=== PATIENT | male | born 1950 | race African-American/Black ===

== ENCOUNTER 2022-08-16 03:11 | Inpatient (IN) | payer MEDICARE, OTHER ==
[2022-08-16 03:28] VITALS: BMI 23.7
[2022-08-16 04:34] LABS: BASO % 0.2 % (0-2.0); EOS % 3.2 % (0-4.5); HEMATOCRIT 42.9 % (35.4-49); HEMOGLOBIN 14.5 GM/dL (11.7-16.9); LYMPH % 28.8 % (8-40); MCH 30.7 pg (25.7-33.7); MCHC 33.9 g/dl (32.0-35.9); MEAN CELL VOLUME 90.5 fl (80-96); MEAN PLT VOLUME 10.5 fl (7.5-11.1); MONO % 8.2 % (3.8-10.2); NEUT % 59.6 % (42.8-82.8); PLATELET COUNT 156 10^3/uL (134-434); RBC 4.74 M/mm3 (4.00-5.60); RDW 13.7 % (11.9-15.9); WHITE BLOOD COUNT 6.7 K/mm3 (4.0-10.0)
[2022-08-16 04:46] LABS: INR 1.04 (0.83-1.09); PROTHROMBIN TIME (PATIENT) 12.1 SEC (9.7-13.0)
[2022-08-16 04:49] LABS: ACTIVATED PTT 33.6 SECONDS (25.2-36.5)
[2022-08-16 05:02] LABS: CHLORIDE 104 mmol/L (98-107); POTASSIUM 3.9 mmol/L (3.5-5.1); SODIUM 140 mmol/L (136-145)
[2022-08-16 05:04] LABS: ANION GAP 8 MMOL/L (8-16); CALCIUM 9.3 mg/dL (8.5-10.1); CO2 28 mmol/L (21-32)
[2022-08-16 05:05] LABS: ALBUMIN 4.2 g/dl (3.4-5.0)
[2022-08-16 05:06] LABS: BLOOD UREA NITROGEN 19.4 mg/dL (7-18); GLUCOSE,RANDOM 154 mg/dL (74-106)
[2022-08-16 05:08] LABS: CREATININE 1.7 mg/dL (0.55-1.3); SGOT/AST 16 U/L (15-37); SGPT/ALT 19 U/L (13-61)
[2022-08-16 05:09] LABS: CHOLESTEROL 264 mg/dL (50-200); TOT PROT 7.8 g/dl (6.4-8.2)
[2022-08-16 05:11] LABS: BILIRUBIN,TOTAL 0.5 mg/dL (0.2-1); HDL CHOLESTEROL 46 mg/dL (40-60); LDL CHOLESTEROL (ONLY SJRH) 172 mg/dL (5-100)
[2022-08-16 05:12] LABS: ALK PHOS 117 U/L (45-117)
[2022-08-16 05:58] LABS: URINE APPEARANCE CLEAR; URINE BILIRUBIN NEGATIVE (NEGATIVE); URINE COLOR YELLOW; URINE GLUCOSE (UA) NEGATIVE (NEGATIVE); URINE KETONE NEGATIVE (NEGATIVE); URINE LEUK ESTERASE NEGATIVE (NEGATIVE); URINE NITRITE NEGATIVE (NEGATIVE); URINE PROTEIN NEGATIVE (NEGATIVE)
[2022-08-16 06:25] LABS: METHADONE, UR NEGATIVE (NEGATIVE); OPIATES, URI NEGATIVE (NEGATIVE); PHENCYCLIDINE,URINE NEGATIVE (NEGATIVE); URINE BARBITURATES NEGATIVE (NEGATIVE); URINE BENZODIAZEPINES NEGATIVE (NEGATIVE)
[2022-08-16 06:51] LABS: COCAINE, UR POSITIVE (NEGATIVE); URINE AMPHETAMINES NEGATIVE (NEGATIVE)
[2022-08-16] MEDS ORDERED: SODIUM CHLORIDE 1,000 ML IV SCH (08:45)
[2022-08-16] MEDS ORDERED: amLODIPine BESYLATE 5 MG TABLET (FP) ONE (09:46)
[2022-08-16] MEDS ORDERED: ASPIRIN COATED 81 MG TABLET.EC ONE (09:46)
[2022-08-16] MEDS ORDERED: ATORVASTATIN CA 40 MG TABLET (FP) ONE (09:47)
[2022-08-16] MEDS ORDERED: HEPARIN NA (PORCINE) 5,000 UNITS/ML 1ML VIAL ONE (09:48)
[2022-08-16] MEDS: amLODIPine BESYLATE 5 MG TABLET (FP) PO SCH (10:22)
[2022-08-16] MEDS: HEPARIN NA (PORCINE) 5,000 UNITS/ML 1ML VIAL SQ SCH ×2 (10:22→21:37)
[2022-08-16] MEDS: ASPIRIN COATED 81 MG TABLET.EC PO SCH (10:22)
[2022-08-16] MEDS: INSULIN SLIDING SCALE (NOVOLOG) 1 VIAL SQ SCH (17:30)
[2022-08-16] MEDS: ATORVASTATIN CA 40 MG TABLET (FP) PO SCH (21:37)
[2022-08-17] MEDS: INSULIN SLIDING SCALE (NOVOLOG) 1 VIAL SQ SCH ×3 (06:33→16:35)
[2022-08-17 07:40] LABS: BASO % 0.5 % (0-2.0); EOS % 3.1 % (0-4.5); HEMATOCRIT 42.3 % (35.4-49); HEMOGLOBIN 13.8 GM/dL (11.7-16.9); LYMPH % 38.7 % (8-40); MCHC 32.7 g/dl (32.0-35.9); MEAN CELL VOLUME 91.9 fl (80-96); MEAN PLT VOLUME 10.8 fl (7.5-11.1); NEUT % 49.7 % (42.8-82.8); PLATELET COUNT 150 10^3/uL (134-434); RBC 4.61 M/mm3 (4.00-5.60); RDW 13.7 % (11.9-15.9); WHITE BLOOD COUNT 5.9 K/mm3 (4.0-10.0)
[2022-08-17 08:00] LABS: POTASSIUM 3.8 mmol/L (3.5-5.1)
[2022-08-17 08:17] LABS: BLOOD UREA NITROGEN 18.5 mg/dL (7-18); CALCIUM 8.9 mg/dL (8.5-10.1)
[2022-08-17 08:21] LABS: CREATININE 1.4 mg/dL (0.55-1.3)
[2022-08-17] MEDS: HEPARIN NA (PORCINE) 5,000 UNITS/ML 1ML VIAL SQ SCH ×2 (10:21→21:02)
[2022-08-17] MEDS: amLODIPine BESYLATE 5 MG TABLET (FP) PO SCH (10:21)
[2022-08-17] MEDS: ASPIRIN COATED 81 MG TABLET.EC PO SCH (10:21)
[2022-08-17] MEDS: ATORVASTATIN CA 40 MG TABLET (FP) PO SCH (21:01)
[2022-08-18] MEDS: INSULIN SLIDING SCALE (NOVOLOG) 1 VIAL SQ SCH ×3 (06:06→16:37)
[2022-08-18 08:01] LABS: HEMOGLOBIN 13.4 GM/dL (11.7-16.9); MCH 30.4 pg (25.7-33.7); MCHC 33.7 g/dl (32.0-35.9); MEAN CELL VOLUME 90.4 fl (80-96); MEAN PLT VOLUME 10.6 fl (7.5-11.1); PLATELET COUNT 145 10^3/uL (134-434); RBC 4.42 M/mm3 (4.00-5.60); RDW 13.4 % (11.9-15.9); WHITE BLOOD COUNT 5.8 K/mm3 (4.0-10.0)
[2022-08-18 08:18] LABS: POTASSIUM 3.9 mmol/L (3.5-5.1)
[2022-08-18 08:21] LABS: BLOOD UREA NITROGEN 25.2 mg/dL (7-18); CALCIUM 8.9 mg/dL (8.5-10.1); MAGNESIUM 2.2 mg/dL (1.8-2.4)
[2022-08-18 08:24] LABS: CREATININE 1.8 mg/dL (0.55-1.3)
[2022-08-18] MEDS ORDERED: SODIUM CHLORIDE 1,000 ML IV SCH (09:30)
[2022-08-18] MEDS: ASPIRIN COATED 81 MG TABLET.EC PO SCH (09:37)
[2022-08-18] MEDS: amLODIPine BESYLATE 5 MG TABLET (FP) PO SCH (09:38)
[2022-08-18] MEDS ORDERED: ENOXAPARIN NA (PORCINE) 40 MG/0.4 ML DISP.SYRIN SQ SCH (10:00)
[2022-08-18] MEDS: HEPARIN NA (PORCINE) 5,000 UNITS/ML 1ML VIAL SQ SCH ×2 (14:04→21:39)
[2022-08-18 15:54] LABS: POTASSIUM 3.6 mmol/L (3.5-5.1)
[2022-08-18 15:56] LABS: BLOOD UREA NITROGEN 23.8 mg/dL (7-18)
[2022-08-18 15:59] LABS: CREATININE 1.6 mg/dL (0.55-1.3)
[2022-08-18] MEDS ORDERED: SODIUM CHLORIDE 500 ML IV STA (17:23)
[2022-08-18] MEDS: ATORVASTATIN CA 40 MG TABLET (FP) PO SCH (21:39)
[2022-08-19] MEDS: HEPARIN NA (PORCINE) 5,000 UNITS/ML 1ML VIAL SQ SCH ×2 (05:47→13:54)
[2022-08-19] MEDS: INSULIN SLIDING SCALE (NOVOLOG) 1 VIAL SQ SCH ×2 (06:03→11:31)
[2022-08-19 08:09] LABS: POTASSIUM 3.7 mmol/L (3.5-5.1)
[2022-08-19 08:11] LABS: BLOOD UREA NITROGEN 17.5 mg/dL (7-18); CALCIUM 9.1 mg/dL (8.5-10.1)
[2022-08-19 08:15] LABS: CREATININE 1.4 mg/dL (0.55-1.3)
[2022-08-19] MEDS: ASPIRIN COATED 81 MG TABLET.EC PO SCH (09:59)
[2022-08-19] MEDS: amLODIPine BESYLATE 5 MG TABLET (FP) PO SCH (09:59)
[2022-08-19 14:02] VITALS: BP 122/76; PULSE 74; RESP 18; TEMP 97.5
== END 2022-08-19 17:56 | disposition home or self-care (01) | DRG 896 ==
LOC: JER 03:11 → INTOOBSV 06:46 → JERBED 06:46 → J4S 12:06 → OBSVTOIN 20:10
PROVIDERS: ADMIT Internal Medicine; ATTEND Internal Medicine
DX: F14.90 Cocaine use, unspecified, uncomplicated (principal); G92.9 Unspecified toxic encephalopathy; R47.01 Aphasia; N17.9 Acute kidney failure, unspecified; R55 Syncope and collapse; I10 Essential (primary) hypertension; E78.5 Hyperlipidemia, unspecified; E11.9 Type 2 diabetes mellitus without complications; Z86.73 Personal history of transient ischemic attack (TIA), and cerebral infarction without residual deficits
CPT/HCPCS: 36415; 70450-TC; 70496-TC; 70498-TC; 70551-TC; 76775-TC; 80048; 80053; 80061; 80307; 81003; 82436; 82550; 82570; 82962; 83036; 83735; 84133; 84300; 84439; 84443; 84484; 84540; 85025; 85027; 85610; 85730; 93005; 93010; 97116-GP; 97162-GP; 99285-25; G0378; J1644

== ENCOUNTER 2022-10-09 21:47 | Inpatient (IN) | payer OTHER ==
[2022-10-09] MEDS ORDERED: SODIUM CHLORIDE 0.9% 500 ML INFUS.BAG IV ONE (23:19)
[2022-10-10 00:43] LABS: POTASSIUM 4.9 mmol/L (3.5-5.1)
[2022-10-10 00:47] LABS: ALBUMIN 4.9 g/dl (3.4-5.0); BLOOD UREA NITROGEN 12.2 mg/dL (7-18)
[2022-10-10 00:50] LABS: CREATININE 1.9 mg/dL (0.55-1.3)
[2022-10-10 00:52] LABS: BILIRUBIN,TOTAL 1.1 mg/dL (0.2-1); TOT PROT 9.6 g/dl (6.4-8.2)
[2022-10-10 01:14] LABS: BASO % 0.4 % (0-2.0); EOS % 2.2 % (0-4.5); HEMATOCRIT 47.2 % (35.4-49); LYMPH % 25.3 % (8-40); MCH 30.1 pg (25.7-33.7); MCHC 33.9 g/dl (32.0-35.9); MEAN CELL VOLUME 88.7 fl (80-96); MEAN PLT VOLUME 10.8 fl (7.5-11.1); MONO % 7.7 % (3.8-10.2); NEUT % 64.4 % (42.8-82.8); PLATELET COUNT 133 10^3/uL (134-434); RBC 5.32 M/mm3 (4.00-5.60); RDW 13.4 % (11.9-15.9); WHITE BLOOD COUNT 9.9 K/mm3 (4.0-10.0)
[2022-10-10 01:17] LABS: EPI CELLS 3 /uL (0-25.1); HYALINE CASTS 0 /uL (0-3.1); PH,URINE 7.5 (5.0-8.0); URINE APPEARANCE CLEAR; URINE BACTERIA 1 /uL (0-1359); URINE BILIRUBIN NEGATIVE (NEGATIVE); URINE COLOR YELLOW; URINE GLUCOSE (UA) NEGATIVE (NEGATIVE); URINE KETONE NEGATIVE (NEGATIVE); URINE LEUK ESTERASE NEGATIVE (NEGATIVE); URINE NITRITE NEGATIVE (NEGATIVE); URINE PROTEIN NEGATIVE (NEGATIVE); URINE RBC 8 /uL (0-23.9); URINE UROBILINOGEN 0.2 mg/dL (0.2-1.0); URINE WBC 2 /uL (0-25.8)
[2022-10-10 01:31] LABS: POTASSIUM 3.7 mmol/L (3.5-5.1)
[2022-10-10 01:33] LABS: BLOOD UREA NITROGEN 10.1 mg/dL (7-18); CALCIUM 9.5 mg/dL (8.5-10.1); MAGNESIUM 1.6 mg/dL (1.8-2.4)
[2022-10-10 01:37] LABS: CREATININE 1.6 mg/dL (0.55-1.3)
[2022-10-10] MEDS ORDERED: MAGNESIUM SULF 50% (8.12 MEQ/2 ML-1 GM VIAL) IVPB ONE (01:37)
[2022-10-10] MEDS ORDERED: MAGNESIUM SULFATE IN WATER 2 GM/50 ML IVPB IVPB ONE (01:49)
[2022-10-10 02:58] LABS: METHADONE, UR NEGATIVE (NEGATIVE)
[2022-10-10 02:59] LABS: OPIATES, URI NEGATIVE (NEGATIVE); PHENCYCLIDINE,URINE NEGATIVE (NEGATIVE); URINE BENZODIAZEPINES NEGATIVE (NEGATIVE)
[2022-10-10 03:24] LABS: COCAINE, UR POSITIVE (NEGATIVE); URINE AMPHETAMINES NEGATIVE (NEGATIVE); URINE BARBITURATES NEGATIVE (NEGATIVE)
[2022-10-10] MEDS ORDERED: levETIRAcetam 500 MG/5 ML INJECTION VIAL IVPB ONE ×2 (06:28→06:44)
[2022-10-10] MEDS ORDERED: levETIRAcetam 500 MG/5 ML INJECTION VIAL IVPB SCH ×2 (06:30→18:00)
[2022-10-10] MEDS ORDERED: HEPARIN NA (PORCINE) 5,000 UNITS/ML 1ML VIAL ONE (06:44)
[2022-10-10] MEDS: HEPARIN NA (PORCINE) 5,000 UNITS/ML 1ML VIAL SQ SCH ×3 (06:50→22:19)
[2022-10-10] MEDS ORDERED: VITAMIN B COMPLEX W/C COMBO TABLET (FP) PO SCH (10:00)
[2022-10-10] MEDS ORDERED: amLODIPine BESYLATE 5 MG TABLET (FP) PO SCH (10:00)
[2022-10-10] MEDS ORDERED: ASPIRIN COATED 81 MG TABLET.EC PO SCH (10:00)
[2022-10-10] MEDS ORDERED: SODIUM CHLORIDE 1,000 ML IV SCH ×2 (11:15→20:02)
[2022-10-10 11:54] LABS: HEMATOCRIT 46.3 % (35.4-49); HEMOGLOBIN 15.7 GM/dL (11.7-16.9); MEAN CELL VOLUME 88.3 fl (80-96); PLATELET COUNT 150 10^3/uL (134-434); RBC 5.24 M/mm3 (4.00-5.60); RDW 13.8 % (11.9-15.9)
[2022-10-10] MEDS: NYSTATIN 500,000 UNITS/5 ML SUSPENSION PO SCH ×2 (12:01→17:42)
[2022-10-10] MEDS: INSULIN SLIDING SCALE (NOVOLOG) 1 VIAL SQ SCH ×4 (12:04→22:30)
[2022-10-10 12:35] LABS: POTASSIUM 3.8 mmol/L (3.5-5.1)
[2022-10-10 12:44] LABS: PHOSPHOROUS 2.6 mg/dL (2.5-4.9)
[2022-10-10 12:46] LABS: TOT PROT 7.4 g/dl (6.4-8.2)
[2022-10-10] MEDS: CEFTRIAXONE 1 GM in DEXTROSE 5%-WATER - 50 ML IVPB SCH (15:05)
[2022-10-10] MEDS: ACETAMINOPHEN 325 MG TABLET (FP) PO PRN (18:32)
[2022-10-10] MEDS ORDERED: ATORVASTATIN CA 40 MG TABLET (FP) PO SCH (22:00)
[2022-10-10] MEDS: ATORVASTATIN CA 40 MG TABLET (FP) PO SCH (22:18)
[2022-10-10] MEDS ORDERED: SODIUM CHLORIDE 1,000 ML IV STA (22:44)
[2022-10-11] MEDS: NYSTATIN 500,000 UNITS/5 ML SUSPENSION PO SCH ×5 (00:40→23:02)
[2022-10-11] MEDS: levETIRAcetam 500 MG/5 ML INJECTION VIAL IVPB SCH ×2 (05:44→17:26)
[2022-10-11] MEDS: HEPARIN NA (PORCINE) 5,000 UNITS/ML 1ML VIAL SQ SCH ×3 (05:45→22:59)
[2022-10-11] MEDS: INSULIN SLIDING SCALE (NOVOLOG) 1 VIAL SQ SCH ×4 (06:01→23:04)
[2022-10-11] MEDS: CEFTRIAXONE 1 GM in DEXTROSE 5%-WATER - 50 ML IVPB SCH (09:58)
[2022-10-11] MEDS: ASPIRIN COATED 81 MG TABLET.EC PO SCH (09:59)
[2022-10-11] MEDS: VITAMIN B COMPLEX W/C COMBO TABLET (FP) PO SCH (09:59)
[2022-10-11] MEDS: amLODIPine BESYLATE 5 MG TABLET (FP) PO SCH (10:01)
[2022-10-11 19:59] LABS: BASO % 0.5 % (0-2.0); EOS % 1.4 % (0-4.5); HEMATOCRIT 39.9 % (35.4-49); HEMOGLOBIN 13.5 GM/dL (11.7-16.9); LYMPH % 27.2 % (8-40); MCH 30.1 pg (25.7-33.7); MCHC 33.9 g/dl (32.0-35.9); MEAN CELL VOLUME 88.9 fl (80-96); MEAN PLT VOLUME 11.1 fl (7.5-11.1); MONO % 6.7 % (3.8-10.2); NEUT % 64.2 % (42.8-82.8); PLATELET COUNT 116 10^3/uL (134-434); RBC 4.48 M/mm3 (4.00-5.60); RDW 13.6 % (11.9-15.9); WHITE BLOOD COUNT 7.7 K/mm3 (4.0-10.0)
[2022-10-11 21:07] LABS: BLOOD UREA NITROGEN 15.9 mg/dL (7-18); CALCIUM 8.1 mg/dL (8.5-10.1)
[2022-10-11 21:10] LABS: CREATININE 1.9 mg/dL (0.55-1.3)
[2022-10-11 21:12] LABS: BILIRUBIN,TOTAL 0.9 mg/dL (0.2-1); TOT PROT 6.2 g/dl (6.4-8.2)
[2022-10-11 21:17] LABS: ALBUMIN 3.2 g/dl (3.4-5.0)
[2022-10-11] MEDS: ATORVASTATIN CA 40 MG TABLET (FP) PO SCH (23:00)
[2022-10-11] MEDS: QUEtiapine FUMARATE 25 MG TABLET PO PRN (23:01)
[2022-10-12] MEDS: levETIRAcetam 500 MG/5 ML INJECTION VIAL IVPB SCH ×2 (06:32→17:54)
[2022-10-12] MEDS: NYSTATIN 500,000 UNITS/5 ML SUSPENSION PO SCH ×3 (06:33→18:01)
[2022-10-12] MEDS: HEPARIN NA (PORCINE) 5,000 UNITS/ML 1ML VIAL SQ SCH ×3 (06:33→22:14)
[2022-10-12] MEDS: INSULIN SLIDING SCALE (NOVOLOG) 1 VIAL SQ SCH ×4 (06:36→22:21)
[2022-10-12 08:18] LABS: BASO % 0.3 % (0-2.0); EOS % 2.7 % (0-4.5); HEMATOCRIT 36.2 % (35.4-49); HEMOGLOBIN 11.9 GM/dL (11.7-16.9); LYMPH % 30.3 % (8-40); MEAN PLT VOLUME 10.9 fl (7.5-11.1); MONO % 10.7 % (3.8-10.2); PLATELET COUNT 108 10^3/uL (134-434); RBC 3.98 M/mm3 (4.00-5.60); RDW 13.3 % (11.9-15.9); WHITE BLOOD COUNT 6.3 K/mm3 (4.0-10.0)
[2022-10-12 08:48] LABS: BLOOD UREA NITROGEN 14.5 mg/dL (7-18); CALCIUM 8.4 mg/dL (8.5-10.1)
[2022-10-12 08:49] LABS: ALBUMIN 3.1 g/dl (3.4-5.0)
[2022-10-12 08:52] LABS: CREATININE 1.7 mg/dL (0.55-1.3)
[2022-10-12 08:53] LABS: TOT PROT 5.9 g/dl (6.4-8.2)
[2022-10-12] MEDS: CEFTRIAXONE 1 GM in DEXTROSE 5%-WATER - 50 ML IVPB SCH (09:41)
[2022-10-12] MEDS: amLODIPine BESYLATE 5 MG TABLET (FP) PO SCH (09:41)
[2022-10-12] MEDS: ASPIRIN COATED 81 MG TABLET.EC PO SCH (09:41)
[2022-10-12] MEDS: VITAMIN B COMPLEX W/C COMBO TABLET (FP) PO SCH (09:42)
[2022-10-12] MEDS: ATORVASTATIN CA 40 MG TABLET (FP) PO SCH (22:15)
[2022-10-13] MEDS: NYSTATIN 500,000 UNITS/5 ML SUSPENSION PO SCH ×4 (05:32→18:16)
[2022-10-13] MEDS: HEPARIN NA (PORCINE) 5,000 UNITS/ML 1ML VIAL SQ SCH ×3 (05:32→21:57)
[2022-10-13] MEDS: levETIRAcetam 500 MG/5 ML INJECTION VIAL IVPB SCH ×2 (05:32→18:16)
[2022-10-13] MEDS: INSULIN SLIDING SCALE (NOVOLOG) 1 VIAL SQ SCH ×4 (06:08→22:04)
[2022-10-13] MEDS: CEFTRIAXONE 1 GM in DEXTROSE 5%-WATER - 50 ML IVPB SCH (09:58)
[2022-10-13] MEDS: amLODIPine BESYLATE 5 MG TABLET (FP) PO SCH (09:58)
[2022-10-13] MEDS: ASPIRIN COATED 81 MG TABLET.EC PO SCH (09:58)
[2022-10-13] MEDS: VITAMIN B COMPLEX W/C COMBO TABLET (FP) PO SCH (09:58)
[2022-10-13] MEDS: AMINO ACIDS 4.25%/D5W 1,000 ML IV SCH (17:06)
[2022-10-13] MEDS: ATORVASTATIN CA 40 MG TABLET (FP) PO SCH (21:57)
[2022-10-14] MEDS: NYSTATIN 500,000 UNITS/5 ML SUSPENSION PO SCH ×5 (00:49→23:49)
[2022-10-14] MEDS: HEPARIN NA (PORCINE) 5,000 UNITS/ML 1ML VIAL SQ SCH ×3 (05:20→22:24)
[2022-10-14] MEDS: levETIRAcetam 500 MG/5 ML INJECTION VIAL IVPB SCH ×2 (05:20→17:17)
[2022-10-14] MEDS: INSULIN SLIDING SCALE (NOVOLOG) 1 VIAL SQ SCH ×4 (06:01→22:24)
[2022-10-14 08:59] LABS: HEMATOCRIT 35.2 % (35.4-49); MCH 30.3 pg (25.7-33.7); MCHC 34.1 g/dl (32.0-35.9); MEAN PLT VOLUME 10.7 fl (7.5-11.1); PLATELET COUNT 130 10^3/uL (134-434); RBC 3.96 M/mm3 (4.00-5.60); RDW 13.5 % (11.9-15.9); WHITE BLOOD COUNT 5.6 K/mm3 (4.0-10.0)
[2022-10-14 09:14] LABS: POTASSIUM 3.9 mmol/L (3.5-5.1)
[2022-10-14 09:25] LABS: BLOOD UREA NITROGEN 13.6 mg/dL (7-18)
[2022-10-14 09:28] LABS: CREATININE 1.4 mg/dL (0.55-1.3)
[2022-10-14 09:30] LABS: CALCIUM 9.2 mg/dL (8.5-10.1)
[2022-10-14] MEDS: CEFTRIAXONE 1 GM in DEXTROSE 5%-WATER - 50 ML IVPB SCH (09:32)
[2022-10-14] MEDS: amLODIPine BESYLATE 5 MG TABLET (FP) PO SCH (09:33)
[2022-10-14] MEDS: VITAMIN B COMPLEX W/C COMBO TABLET (FP) PO SCH (09:33)
[2022-10-14] MEDS: ASPIRIN COATED 81 MG TABLET.EC PO SCH (09:33)
[2022-10-14 14:52] VITALS: BMI 21.1
[2022-10-14] MEDS: AMINO ACIDS 4.25%/D5W 1,000 ML IV SCH (17:00)
[2022-10-14] MEDS: ATORVASTATIN CA 40 MG TABLET (FP) PO SCH (22:24)
[2022-10-15] MEDS: HEPARIN NA (PORCINE) 5,000 UNITS/ML 1ML VIAL SQ SCH ×3 (06:14→21:05)
[2022-10-15] MEDS: NYSTATIN 500,000 UNITS/5 ML SUSPENSION PO SCH ×4 (06:14→23:15)
[2022-10-15] MEDS: levETIRAcetam 500 MG/5 ML INJECTION VIAL IVPB SCH ×2 (06:14→17:07)
[2022-10-15] MEDS: INSULIN SLIDING SCALE (NOVOLOG) 1 VIAL SQ SCH ×4 (06:20→21:20)
[2022-10-15] MEDS: ASPIRIN COATED 81 MG TABLET.EC PO SCH (09:08)
[2022-10-15] MEDS: amLODIPine BESYLATE 5 MG TABLET (FP) PO SCH (09:08)
[2022-10-15] MEDS: VITAMIN B COMPLEX W/C COMBO TABLET (FP) PO SCH (09:08)
[2022-10-15 14:03] LABS: BASO % 0.5 % (0-2.0); EOS % 5.7 % (0-4.5); HEMATOCRIT 38.8 % (35.4-49); HEMOGLOBIN 12.8 GM/dL (11.7-16.9); LYMPH % 31.3 % (8-40); MCH 29.8 pg (25.7-33.7); MEAN CELL VOLUME 90.1 fl (80-96); MEAN PLT VOLUME 11.4 fl (7.5-11.1); MONO % 6.7 % (3.8-10.2); NEUT % 55.8 % (42.8-82.8); PLATELET COUNT 149 10^3/uL (134-434); RBC 4.31 M/mm3 (4.00-5.60); RDW 13.2 % (11.9-15.9); WHITE BLOOD COUNT 5.7 K/mm3 (4.0-10.0)
[2022-10-15 14:28] LABS: POTASSIUM 3.7 mmol/L (3.5-5.1)
[2022-10-15 14:36] LABS: ALBUMIN 3.1 g/dl (3.4-5.0); BLOOD UREA NITROGEN 13.7 mg/dL (7-18); CREATININE 1.3 mg/dL (0.55-1.3)
[2022-10-15 14:37] LABS: TOT PROT 6.8 g/dl (6.4-8.2)
[2022-10-15 14:38] LABS: BILIRUBIN,TOTAL 0.5 mg/dL (0.2-1); CALCIUM 8.9 mg/dL (8.5-10.1)
[2022-10-15] MEDS: AMINO ACIDS 4.25%/D5W 1,000 ML IV SCH ×2 (16:43→21:04)
[2022-10-15] MEDS: POLYMYXIN B SULFATE/TMP 10 ML OPHTHALMIC SOLUTION OU SCH ×2 (17:53→23:14)
[2022-10-15] MEDS: THIAMINE HCL 200 MG/2 ML VIAL IVPB SCH (21:05)
[2022-10-15] MEDS: ATORVASTATIN CA 40 MG TABLET (FP) PO SCH (21:05)
[2022-10-15] MEDS: QUEtiapine FUMARATE 25 MG TABLET PO PRN (21:05)
[2022-10-16] MEDS: levETIRAcetam 500 MG/5 ML INJECTION VIAL IVPB SCH ×2 (05:23→17:35)
[2022-10-16] MEDS: NYSTATIN 500,000 UNITS/5 ML SUSPENSION PO SCH ×3 (05:23→17:39)
[2022-10-16] MEDS: HEPARIN NA (PORCINE) 5,000 UNITS/ML 1ML VIAL SQ SCH ×3 (05:23→22:04)
[2022-10-16] MEDS: POLYMYXIN B SULFATE/TMP 10 ML OPHTHALMIC SOLUTION OU SCH ×4 (05:32→22:15)
[2022-10-16] MEDS: INSULIN SLIDING SCALE (NOVOLOG) 1 VIAL SQ SCH ×4 (06:06→23:12)
[2022-10-16 07:19] LABS: HEMATOCRIT 36.5 % (35.4-49); HEMOGLOBIN 12.2 GM/dL (11.7-16.9); MCH 29.9 pg (25.7-33.7); MCHC 33.4 g/dl (32.0-35.9); MEAN CELL VOLUME 89.5 fl (80-96); PLATELET COUNT 138 10^3/uL (134-434); RBC 4.08 M/mm3 (4.00-5.60); RDW 13.3 % (11.9-15.9); WHITE BLOOD COUNT 5.8 K/mm3 (4.0-10.0)
[2022-10-16 07:41] LABS: POTASSIUM 3.4 mmol/L (3.5-5.1)
[2022-10-16 07:43] LABS: CALCIUM 8.4 mg/dL (8.5-10.1)
[2022-10-16 07:44] LABS: BLOOD UREA NITROGEN 16.7 mg/dL (7-18)
[2022-10-16 07:47] LABS: CREATININE 1.3 mg/dL (0.55-1.3)
[2022-10-16 07:49] LABS: BILIRUBIN,TOTAL 0.6 mg/dL (0.2-1); TOT PROT 6.2 g/dl (6.4-8.2)
[2022-10-16] MEDS: amLODIPine BESYLATE 5 MG TABLET (FP) PO SCH (09:01)
[2022-10-16] MEDS: ACETAMINOPHEN 325 MG TABLET (FP) PO PRN (09:01)
[2022-10-16] MEDS: ASPIRIN COATED 81 MG TABLET.EC PO SCH (09:01)
[2022-10-16] MEDS: THIAMINE HCL 200 MG/2 ML VIAL IVPB SCH ×2 (09:01→22:04)
[2022-10-16] MEDS: VITAMIN B COMPLEX W/C COMBO TABLET (FP) PO SCH (09:01)
[2022-10-16] MEDS: POTASSIUM CHLORIDE ORAL LIQUID 20 MEQ/15 ML PO SCH ×2 (09:52→22:04)
[2022-10-16] MEDS: AMINO ACIDS 4.25%/D5W 1,000 ML IV SCH (16:06)
[2022-10-16] MEDS ORDERED: ACETAMINOPHEN 325 MG TABLET (FP) PO PRN (20:17)
[2022-10-16] MEDS ORDERED: QUEtiapine FUMARATE 25 MG TABLET PO PRN (20:17)
[2022-10-16] MEDS: ATORVASTATIN CA 40 MG TABLET (FP) PO SCH (22:04)
[2022-10-17] MEDS: NYSTATIN 500,000 UNITS/5 ML SUSPENSION PO SCH ×5 (00:36→23:09)
[2022-10-17] MEDS: POLYMYXIN B SULFATE/TMP 10 ML OPHTHALMIC SOLUTION OU SCH ×4 (06:44→22:27)
[2022-10-17] MEDS: levETIRAcetam 500 MG/5 ML INJECTION VIAL IVPB SCH ×2 (06:45→18:50)
[2022-10-17] MEDS: HEPARIN NA (PORCINE) 5,000 UNITS/ML 1ML VIAL SQ SCH ×3 (06:45→22:27)
[2022-10-17] MEDS: INSULIN SLIDING SCALE (NOVOLOG) 1 VIAL SQ SCH ×4 (08:03→23:00)
[2022-10-17] MEDS: THIAMINE HCL 200 MG/2 ML VIAL IVPB SCH ×2 (10:11→22:27)
[2022-10-17] MEDS: amLODIPine BESYLATE 5 MG TABLET (FP) PO SCH (10:11)
[2022-10-17] MEDS: VITAMIN B COMPLEX W/C COMBO TABLET (FP) PO SCH (10:11)
[2022-10-17] MEDS: ASPIRIN COATED 81 MG TABLET.EC PO SCH (10:11)
[2022-10-17 10:26] LABS: HEMATOCRIT 39.1 % (35.4-49); HEMOGLOBIN 13.5 GM/dL (11.7-16.9); MCH 30.5 pg (25.7-33.7); MCHC 34.4 g/dl (32.0-35.9); MEAN CELL VOLUME 88.7 fl (80-96); MEAN PLT VOLUME 10.3 fl (7.5-11.1); PLATELET COUNT 166 10^3/uL (134-434); RBC 4.41 M/mm3 (4.00-5.60); RDW 13.3 % (11.9-15.9); WHITE BLOOD COUNT 6.7 K/mm3 (4.0-10.0)
[2022-10-17 10:33] LABS: POTASSIUM 4.3 mmol/L (3.5-5.1)
[2022-10-17 10:42] LABS: ALBUMIN 3.2 g/dl (3.4-5.0); BLOOD UREA NITROGEN 20.2 mg/dL (7-18); CALCIUM 9.1 mg/dL (8.5-10.1); MAGNESIUM 1.9 mg/dL (1.8-2.4); PHOSPHOROUS 2.4 mg/dL (2.5-4.9)
[2022-10-17 10:44] LABS: BILIRUBIN,TOTAL 0.5 mg/dL (0.2-1); TOT PROT 6.9 g/dl (6.4-8.2)
[2022-10-17 10:47] LABS: CREATININE 1.3 mg/dL (0.55-1.3)
[2022-10-17] MEDS ORDERED: AMINO ACIDS 4.25%/D5W 1,000 ML IV SCH (16:00)
[2022-10-17] MEDS: AMINO ACIDS/PROTEIN HYDROLYS 30 ML LIQUID.PKT PO SCH (18:39)
[2022-10-17] MEDS ORDERED: MIRTAZAPINE 15 MG TABLET (FP) PO SCH (22:00)
[2022-10-17] MEDS: ATORVASTATIN CA 40 MG TABLET (FP) PO SCH (22:26)
[2022-10-18] MEDS: HEPARIN NA (PORCINE) 5,000 UNITS/ML 1ML VIAL SQ SCH ×2 (05:33→13:44)
[2022-10-18] MEDS: POLYMYXIN B SULFATE/TMP 10 ML OPHTHALMIC SOLUTION OU SCH ×2 (05:33→12:37)
[2022-10-18] MEDS: NYSTATIN 500,000 UNITS/5 ML SUSPENSION PO SCH ×2 (05:34→12:37)
[2022-10-18] MEDS: levETIRAcetam 500 MG/5 ML INJECTION VIAL IVPB SCH (05:34)
[2022-10-18 06:01] VITALS: RESP 18
[2022-10-18] MEDS: INSULIN SLIDING SCALE (NOVOLOG) 1 VIAL SQ SCH ×2 (06:46→11:43)
[2022-10-18] MEDS: AMINO ACIDS/PROTEIN HYDROLYS 30 ML LIQUID.PKT PO SCH (08:28)
[2022-10-18] MEDS: THIAMINE HCL 200 MG/2 ML VIAL IVPB SCH (10:27)
[2022-10-18] MEDS: ASPIRIN COATED 81 MG TABLET.EC PO SCH (10:27)
[2022-10-18] MEDS: VITAMIN B COMPLEX W/C COMBO TABLET (FP) PO SCH (10:27)
[2022-10-18] MEDS: amLODIPine BESYLATE 5 MG TABLET (FP) PO SCH (10:27)
[2022-10-18 15:19] VITALS: BP 127/69; PULSE 71; TEMP 98.4
== END 2022-10-18 18:01 | DRG 70 ==
LOC: JER 21:47 → JERBED 10-10 03:38 → J5S 10-10 09:20 → J4S 10-10 18:58 → OBSVTOIN 10-13 14:12 → J4S 10-15 17:19 → J8W 10-16 20:06
PROVIDERS: ADMIT Internal Medicine; ATTEND Nurse Practitioner Acute Care
DX: G93.89 Other specified disorders of brain (principal); E43 Unspecified severe protein-calorie malnutrition; E87.1 Hypo-osmolality and hyponatremia; R47.01 Aphasia; B37.0 Candidal stomatitis; M62.82 Rhabdomyolysis; R62.7 Adult failure to thrive; G92.8 Other toxic encephalopathy; R45.1 Restlessness and agitation; I10 Essential (primary) hypertension; E78.5 Hyperlipidemia, unspecified; N18.2 Chronic kidney disease, stage 2 (mild); R56.9 Unspecified convulsions; F14.90 Cocaine use, unspecified, uncomplicated; Z68.20 Body mass index [BMI] 20.0-20.9, adult
CPT/HCPCS: 36415; 70450-TC; 71045-TC-FY; 71250-TC; 74176-TC; 80048; 80053; 80307; 81003; 82436; 82550; 82553; 82570; 82962; 83735; 83935; 84100; 84133; 84156; 84300; 84484; 84540; 85025; 85027; 87040; 87086; 87635; 93005; 93010; 95816; 97116-GP; 97162-GP; 99285-25; G0378; J1644

== ENCOUNTER 2022-10-19 23:17 | Emergency (ER) | payer OTHER ==
[2022-10-19 23:37] VITALS: BMI 25.0
[2022-10-20 01:51] LABS: URINE APPEARANCE CLEAR; URINE BILIRUBIN 1+ (NEGATIVE); URINE COLOR DK YELLOW; URINE GLUCOSE (UA) NEGATIVE (NEGATIVE); URINE KETONE NEGATIVE (NEGATIVE); URINE LEUK ESTERASE NEGATIVE (NEGATIVE); URINE NITRITE NEGATIVE (NEGATIVE); URINE PROTEIN TRACE (NEGATIVE)
[2022-10-20 02:24] LABS: BASO % 0.2 % (0-2.0); EOS % 6.3 % (0-4.5); HEMATOCRIT 39.2 % (35.4-49); HEMOGLOBIN 13.3 GM/dL (11.7-16.9); LYMPH % 34.6 % (8-40); MCH 30.2 pg (25.7-33.7); MCHC 33.9 g/dl (32.0-35.9); MEAN CELL VOLUME 89.1 fl (80-96); MEAN PLT VOLUME 9.4 fl (7.5-11.1); MONO % 9.9 % (3.8-10.2); PLATELET COUNT 233 10^3/uL (134-434); RDW 13.5 % (11.9-15.9); WHITE BLOOD COUNT 6.5 K/mm3 (4.0-10.0)
[2022-10-20 02:50] LABS: POTASSIUM 4.6 mmol/L (3.5-5.1)
[2022-10-20 02:51] LABS: CALCIUM 8.6 mg/dL (8.5-10.1)
[2022-10-20 02:52] LABS: ALBUMIN 3.2 g/dl (3.4-5.0)
[2022-10-20 02:55] LABS: CREATININE 1.7 mg/dL (0.55-1.3)
[2022-10-20 02:57] LABS: BILIRUBIN,TOTAL 0.5 mg/dL (0.2-1); TOT PROT 6.9 g/dl (6.4-8.2)
[2022-10-20] MEDS ORDERED: SODIUM CHLORIDE 0.9% 500 ML INFUS.BAG IV ONE (03:10)
[2022-10-20 05:49] VITALS: RESP 15; TEMP 97.8
[2022-10-20 06:17] VITALS: BP 129/66; PULSE 66
== END 2022-10-20 06:18 | disposition home or self-care (01) ==
LOC: JER 23:17
PROC: 0T2BX0Z Change Drainage Device in Bladder, External Approach (ICD-10-PCS; principal; 2022-10-19)
DX: R33.9 Retention of urine, unspecified (principal); R34 Anuria and oliguria; F03.90 Unspecified dementia, unspecified severity, without behavioral disturbance, psychotic disturbance, mood disturbance, and anxiety; R41.82 Altered mental status, unspecified; R62.7 Adult failure to thrive; R53.83 Other fatigue
CPT/HCPCS: 36415; 51702; 80053; 81003; 85025; 87086; 99283-25